=== PATIENT | male | born 1990 | race African-American/Black ===

== ENCOUNTER 2021-06-01 14:13 | Emergency (ER) | payer OTHER ==
[2021-06-01] MEDS ORDERED: Dexamethasone 4 mg/ml Vial ONE (15:05)
[2021-06-01] MEDS ORDERED: Dexamethasone 4 MG TAB ONE (15:06)
== END 2021-06-01 15:12 | disposition home or self-care (01) ==
LOC: BURERS 14:13
DX: J02.9 Acute pharyngitis, unspecified (principal); J06.9 Acute upper respiratory infection, unspecified; H61.23 Impacted cerumen, bilateral
CPT/HCPCS: 99283; J1100; J8540